=== PATIENT | male | born 1955 | race Caucasian/White ===

== ENCOUNTER 2017-10-31 15:03 | Outpatient (RCR) | payer BC | END 2017-11-21 | disposition home or self-care (01) | LOC: WCC 15:03 | DX: I63.30 Cerebral infarction due to thrombosis of unspecified cerebral artery (principal); E11.9 Type 2 diabetes mellitus without complications; Z79.84 Long term (current) use of oral hypoglycemic drugs | CPT/HCPCS: 82962; G0463 ==

== ENCOUNTER 2017-11-05 11:26 | Outpatient (RCR) | payer SELFPAY | END 2017-11-21 | disposition home or self-care (01) | LOC: WCC 11:26 | DX: I63.30 Cerebral infarction due to thrombosis of unspecified cerebral artery (principal); E11.9 Type 2 diabetes mellitus without complications; Z79.84 Long term (current) use of oral hypoglycemic drugs | CPT/HCPCS: G0277 ×4 ==